=== PATIENT | female | born 1985 | race American Indian/Alaskan Native ===

== ENCOUNTER 2021-09-03 03:24 | Inpatient (IN) | payer OTHER ==
[2021-09-03] MEDS ORDERED: LACTATED RINGERS 1,000 ML ONE ×3 (04:17→19:15)
[2021-09-03 06:05] LABS: Hematocrit 33.8 % (30.3-42.9); Hemoglobin 10.7 gm/dl (10.1-14.3); Mean Corpuscular HGB Conc 32 % (30-34); Mean Corpuscular Volume 79 fl (79-97); Platelet Count 191 K/mm3 (140-440); Red Blood Count 4.27 M/mm3 (3.65-5.03); Red Cell Distribution Width 17.7 % (13.2-15.2)
[2021-09-03 06:29] LABS: Alanine Aminotransferase 17 units/L (7-56); Uric Acid 5.4 mg/dL (3.5-7.6)
[2021-09-03] MEDS ORDERED: miSOPROStol 200 MCG TAB PR PRN (08:15)
[2021-09-03] MEDS ORDERED: LACTATED RINGERS 1,000 ML IV SCH (08:15)
[2021-09-03] MEDS ORDERED: TERBUTALINE 1 MG/1 ML INJ SUB-Q PRN (08:15)
[2021-09-03] MEDS ORDERED: LOPERAMIDE 2 MG CAP PO PRN (08:15)
[2021-09-03] MEDS ORDERED: fentaNYL 100 MCG/2 ML INJ IV PRN (08:15)
[2021-09-03] MEDS ORDERED: CARBOPROST TROMETHAMINE 250 MCG/1 ML INJ IM PRN (08:15)
[2021-09-03] MEDS ORDERED: ePHEDrine SULFATE 50 MG/1 ML INJ IV PRN ×2 (08:15→09:24)
[2021-09-03] MEDS ORDERED: NalbUPHINE 10 MG/1 ML INJ IV PRN ×2 (08:15→09:24)
[2021-09-03] MEDS ORDERED: LIDOCAINE (2%) 20 MG/1 ML VIAL 20 ML MDV INFILTRATI ONE (08:15)
[2021-09-03] MEDS ORDERED: ACETAMINOPHEN 325 MG TAB PO PRN (08:15)
[2021-09-03] MEDS ORDERED: METHYLERGONOVINE MALEATE 0.2 MG/ML VIAL IM PRN (08:15)
[2021-09-03] MEDS ORDERED: AMPICILLIN/NS 2 GM/100 ML 2 GM/100 ML BAG IV ONE (08:15)
[2021-09-03] MEDS ORDERED: OXYTOCIN 10 UNIT/1 ML INJ IM PRN (08:15)
--- NOTE | 2021-09-03 08:23 | History and Physical Report ---
History of Present Illness Date of examination: 09/03/21 Date of admission: 09/03/21 03:53 Chief complaint: Contractions History of present illness: 36 year old was admitted to L&D with contractions. Patient denies vaginal bleeding or leaking of fluid. Patient states she received care at [facility]. No records are available. Patient states her EDC is 09/05/21. Patient denies any complications during . Patient denies any health problems other than obesity. She states this is her first . Past History Past Medical History: other (obesity) Past Surgical History: no surgical history [facility] History: denies: gonorrhea, hepatitis B, hepatitis C, herpes, HIV, syphilis, trichomonas Family/Genetic History: none Social history: no significant social history, full code. denies: smoking, alcohol abuse, prescription drug abuse, IV drug use - Obstetrical History Expected Date of Delivery: 09/05/21 Actual Gestation: 39 Week(s) 5 Day(s) : 1 Para: 0 Hx # Term Pregnancies: 0 Number of Pregnancies: 0 Spontaneous Abortions: 0 Induced : 0 Number of Living Children: 0 Medications and Allergies Allergies Allergy/AdvReac Type Severity Reaction Status Date / Time No Known Allergies Allergy Verified 09/03/21 04:19 Active Meds: Active Medications Acetaminophen (Acetaminophen 325 Mg Tab) 650 mg PO Q4H PRN PRN Reason: Pain, Mild (1-3) Carboprost Tromethamine (Carboprost Tromethamine 250 Mcg/1 Ml Inj) 250 mcg IM ONCE PRN PRN Reason: Uterine Bleeding Ephedrine Sulfate (Ephedrine Sulfate 50 Mg/1 Ml Inj) 10 mg IV Q2M PRN PRN Reason: Hypotension Fentanyl (Fentanyl 100 Mcg/2 Ml Inj) 100 mcg IV Q2H PRN PRN Reason: Pain,Severe (7-10) LABOR PAIN Lactated Ringer's (Lactated Ringers) 1,000 mls @ 125 mls/hr IV DIRECT VIKTORIA Oxytocin/Sodium Chloride (Pitocin/Ns 30 Unit/500ml) 30 units in 500 mls @ 40 mls/hr IV TITR VIKTORIA; Protocol Ampicillin Sodium (Ampicillin/Ns 2 Gm/100 Ml) 2 gm in 100 mls @ 100 mls/hr IV ONCE ONE; Protocol Stop: 09/03/21 09:14 Ampicillin Sodium (Ampicillin/Ns 1 Gm/50 Ml) 1 gm in 50 mls @ 100 mls/hr IV Q4H VIKTORIA; Protocol Lidocaine (Lidocaine (2%) 20 Mg/1 Ml Vial 20 Ml Mdv) 20 ml INFILTRATI ONCE ONE Stop: 09/03/21 08:16 Loperamide HCl (Loperamide 2 Mg Cap) 2 mg PO ONCE PRN PRN Reason: give with Hemabate Methylergonovine Maleate (Methylergonovine Maleate 0.2 Mg/Ml Vial) 0.2 mg IM ONCE PRN PRN Reason: Uterine Bleeding Mineral Oil (Mineral Oil 30 Ml Oral Liqd) 30 ml PO QHS PRN PRN Reason: Constipation Misoprostol (Misoprostol 200 Mcg Tab) 800 mcg PA ONCE PRN PRN Reason: Uterine Bleeding Nalbuphine HCl (Nalbuphine 10 Mg/1 Ml Inj) 10 mg IV Q2H PRN PRN Reason: Pain, Moderate (4-6) Oxytocin (Oxytocin 10 Unit/1 Ml Inj) 10 unit IM ONCE PRN PRN Reason: Uterine Bleeding Terbutaline Sulfate (Terbutaline 1 Mg/1 Ml Inj) 0.25 mg SUB-Q ONCE PRN PRN Reason: Hyperstimulation/Hypertonicity Review of Systems All systems: negative (contractions) - Vital Signs Vital signs: Vital Signs Pulse Pulse Ox 80 100 09/03/21 03:39 09/03/21 03:39 Temp Pulse Resp BP Pulse Ox 98.9 F 77 16 144/68 99 09/03/21 07:11 09/03/21 08:20 09/03/21 07:11 09/03/21 08:20 09/03/21 08:18 - Physical Exam Abdomen: Positive: normal appearance, soft. Negative: distention, tenderness, guarding, rigidity Genitourinary (Female): Positive: normal external genitalia, normal perenium. Negative: perineal/vulvar lesions Vagina: Positive: normal moisture Uterus: Positive: enlarged. Negative: tender Extremities: Negative: tenderness - Obstetrical FHR: category 2 FHR comments: Occasional brief variable FHR deceleration with rapid return to baseline. Normal baseline FHR and moderate variability. Uterine Contraction Monitor Mode: External Cervical Dilatation: 6 (BBOW) Cervical Effacement Percentage: 100 station: -2 Uterine Contraction Pattern: Regular Uterine Contraction Intensity: Moderate Results Result Diagrams: 09/03/21 Unknown 09/03/21 Unknown Abnormal lab results 09/03/21 09/03/21 Range/Units Unknown Unknown MCH 25 L (28-32) pg RDW 17.7 H (13.2-15.2) % Lactate Dehydrogenase 257 H (91-180) units/L All other labs normal. Assessment and Plan A: at 39 weeks, 5 days gestation. Active labor. GBS unknown. No records available. P: Continuous EFM. GBS prophylaxis. labs. records requested. Epidural if desired.
[2021-09-03] MEDS ORDERED: OXYTOCIN DRIP 30 UNITS/500 ML BAG IV SCH ×2 (09:00→12:00)
[2021-09-03] MEDS ORDERED: NALOXONE 2 MG/2 ML INJ IV PRN (09:24)
[2021-09-03] MEDS ORDERED: ONDANSETRON 4 MG/2 ML INJ IV PRN ×2 (09:24→17:56)
[2021-09-03] MEDS ORDERED: diphenhydrAMINE 50 MG/ML VIAL IV PRN (09:24)
[2021-09-03] MEDS ORDERED: LACTATED RINGERS 250 ML IV SOLN IV ONE (09:24)
--- NOTE | 2021-09-03 09:39 | Ultrasound Report ---
ULTRASOUND OBSTETRIC INDICATION / CLINICAL INFORMATION: EFW, EDC/EGA, location placenta. Clinical Gestational Age (GA) in weeks, days: 39 weeks 5 days TECHNIQUE: Transabdominal. COMPARISON: None available. FINDINGS: NUMBER: Single PRESENTATION: cephalic PLACENTA: anterior and free of the os. MEASUREMENTS: - Biparietal Diameter = 8.54 cm = 34 weeks, 3 days (head measurements are not felt to be accurate due to the patient being in active labor.) - Head Circumference = 29.79 cm = 30 weeks, 0 days ((head measurements are not felt to be accurate du e to the patient being in active labor) - Abdominal Circumference = 32.02 cm = 36 weeks, 0 days - Femur Length = 7.46 cm = 38 weeks, 1 days - Estimated Weight (in grams, if calculated): 2823 g - Heart Rate (beats per minute): 142 ADDITIONAL FINDINGS: None. AVERAGE ULTRASOUND AGE (AUA) in weeks, days = 35 weeks 5 days IMPRESSION: 1. Single intrauterine with AUA of 35 weeks, 5 days. This measurement is most likely undere stimated due to inaccurate head measurements. 2. No significant sonographic abnormality. Signer Name: Staci Sam MD Signed: 09/03/2021 9:35 AM Workstation Name: [id number]
--- NOTE | 2021-09-03 09:59 | Anesthesia Consultation ---
Anesthesia Consult and Med Hx Date of service: 09/03/21 - Airway Anesthetic Teeth Evaluation: Good ROM Head & Neck: Adequate Mental/Hyoid Distance: Adequate Mallampati Class: Class II Intubation Access Assessment: Probably Good - Pulmonary Exam CTA: Yes - Cardiac Exam Cardiac Exam: RRR - Pre-Operative Health Status ASA Pre-Surgery Classification: ASA2 Proposed Anesthetic Plan: Epidural - Pulmonary Hx Smoking: No Hx Asthma: No COPD: No Hx Pneumonia: No Hx Sleep Apnea: No - Cardiovascular System Hx Hypertension: No Hx Heart Attack/AMI: No Hx Angina: No - Gastrointestinal Hx Gastroesophageal Reflux Disease: No - Endocrine Hx End Stage Renal Disease: No Hx Liver Disease: No Hx Insulin Dependent Diabetes: No Hx Non-Insulin Dependent Diabetes: No - Other Systems Hx Alcohol Use: No Hx Obesity: Yes
[2021-09-03] MEDS ORDERED: fentaNYL-BUPIV 2 MCG/ML-0.125% 200 MCG/100 ML BAG EPIDURAL SCH (10:00)
--- NOTE | 2021-09-03 10:00 | Progress Note ---
Labor Epidural - Labor Epidural Start Time: 09:33 Stop Time: 09:51 Performed by:: IGOR SALDIVAR (Sanjuana GARCIA) Procedure: Patient is requesting epidural for labor and pain. H&P, labs were reviewed. Patient IDed, all questions and concerns were answered, and consent was signed. Timeout was performed at bedside. Patient in sitting position. Sterile prep and drape was performed. 3ml of 1% lidocaine skin wheal at L[3]- L [4]. 17-gauge Tuohy epidural needle was advanced to loss of resistance with air technique 8cm. Negative CSF negative blood. Epidural catheter advanced to [14] centimeters. [negative] Aspiration [negative] test dose. Sterile dressing applied. Patient tolerated procedure.
--- NOTE | 2021-09-03 10:47 | Event Note ---
Date: 09/03/21 records have now been received and the following noted: AMA (was seen by [facility] and discharged on 08/07); multiple uterine fibroids; varicella nonimmune; vitamin D deficiency; anemia. labs are as follows: O+, antibody screen negative, rubella immune, varicella nonimmune, pap smear ASC-US, HIV negative, hepatitis B surface antigen negative, RPR nonreactive, gonorrhea negative, chlamydia negative, trichomonas negative, AFP negative, inheritest negative, 1 hour sugar test 125, GBS negative.
[2021-09-03] MEDS ORDERED: AMPICILLIN/NS 1 GM/50 ML 1 GM/50 ML BAG IV SCH (12:30)
--- NOTE | 2021-09-03 13:48 | Event Note ---
Date: 09/03/21 Several late appearing heart rate decelerations noted. FHR baseline 145- 150 with moderate variability. Pitocin turned off. Patient positioned in left lateral postition. Oxygen applied per face mask at 10 LPM. SVE 9/100/-2/BBOW. Fetus in OP position.
--- NOTE | 2021-09-03 14:02 | Event Note ---
Date: 09/03/21 Amnioinfusion ordered; nurse notified. Consulted with Dr. Cherry re: FHR tracing and interventions taken.
[2021-09-03] MEDS ORDERED: SODIUM CHLORIDE 0.9% 1000 ML 1,000 ML VG SCH (14:15)
[2021-09-03 14:17] LABS: Hepatitis C Virus Antibody Non-Reactive (NonReactive)
--- NOTE | 2021-09-03 14:53 | Event Note ---
Date: 09/03/21 SVE 0.
[2021-09-03] MEDS ORDERED: MINERAL OIL 30 ML ORAL LIQD ONE (16:49)
[2021-09-03] MEDS ORDERED: HYDROcodone/ACETAMINOPHEN 5-325 MG TAB PO PRN (17:56)
[2021-09-03] MEDS ORDERED: LANOLIN/ZINC/DIMETHICONE (LANSINOH) 7 GM TP PRN (17:56)
[2021-09-03] MEDS ORDERED: diphenhydrAMINE 25 MG CAP PO PRN (17:56)
[2021-09-03] MEDS ORDERED: MAGNESIUM HYDROXIDE (MOM) ORAL LIQD UDC PO PRN (17:56)
--- NOTE | 2021-09-03 18:09 | Procedure Note ---
OB Delivery Note - Delivery Date of Delivery: 09/03/21 Surgeon: ENID DENNY Estimated blood loss: other (250 cc) - Vaginal Delivery presentation: vertex Delivery position: OA Intrapartum events: none Delivery induction: none Delivery augmentation: pitocin Delivery monitor: external FHT, external uterine Route of delivery: Delivery placenta: spontaneous Delivery cord: nuchal cord, 3 umbilical vessels Episiotomy: none Delivery laceration: 1st degree Delivery repair: vicryl Anesthesia: epidural Delivery comments: Spontaneous vaginal delivery at 17:10 of liveborn male infant weighing 6 lb. 1 oz. over intact perineum with apgars of 8/9. Epidural anesthesia. was atraumatic; loose nuchal cord times 1, manually reduced. Baby was placed skin to skin with mom immediately after delivery. Spontaneous cry and respirations. Baby was suctioned with bulb syringe and dried with warm blankets. 3 vessel cord double clamped and cut after cessation of pulsation. Baby was taken to radiant warmer for further suctioning. Cord blood obtained. Spontaneous delivery of intact placenta and membranes at 17:14. EBL 250 cc. Pitocin to IV fluids after delivery of placenta. Fundus firm and midline at 1 FB below umbilicus. First degree right labial laceration repaired with 2-0 vicryl. Vaginal sweep negative. Sponge count correct. Mother and baby stable in birthing room.
[2021-09-03] MEDS ORDERED: WITCH HAZEL/ GLYCERIN PAD TP PRN (19:00)
[2021-09-03] MEDS ORDERED: BENZOCAINE/MENTHOL 20/0.5% TOP SPRAY 56 GM TP PRN (19:00)
[2021-09-03] MEDS ORDERED: MAGNESIUM SULFATE 4 GM/100 ML BAG IV ONE (19:03)
--- NOTE | 2021-09-03 19:07 | Event Note ---
Date: 09/03/21 BPs increasing. Patient denies pain. Labetalol 100 mg po BID ordered. Magnesium sulfate ordered. Informed nurse and patient re: plan of care. Consulted with Dr. Cherry re: elevated blood pressures and above interventions.
[2021-09-03 19:31] LABS: Bacteria,Urine 1+ /HPF (Negative); Bilirubin,Urine NEG (Negative); Blood,Urine NEG (Negative); Color,Urine Yellow (Yellow); Mucus,Urine 3+ /HPF; Urobilinogen,Urine < 2.0 mg/dL (<2.0)
[2021-09-03] MEDS ORDERED: MAGNESIUM SULFATE 40GM/1000ML 40 GM/1,000 ML BAG IV SCH (20:00)
[2021-09-03] MEDS: IBUPROFEN 800 MG TAB PO SCH (20:45)
[2021-09-03] MEDS ORDERED: MINERAL OIL 30 ML ORAL LIQD PO PRN (22:00)
[2021-09-04] MEDS: IBUPROFEN 800 MG TAB PO SCH (03:30)
[2021-09-04 07:04] LABS: Hematocrit 28.4 % (30.3-42.9)
[2021-09-04] MEDS ORDERED: LACTATED RINGERS 1,000 ML ONE ×2 (08:27→19:03)
--- NOTE | 2021-09-04 08:51 | Progress Note ---
Assessment and Plan A: S/P with GHTN Asymptomatic anemia Mgs04 level 6.10 p: Continue routine pp orders Decrease Mgso4 to 1gm/hr D/c home within 24-[address] Anirudh Tran consulted Subjective - Subjective Date of service: 09/04/21 Principal diagnosis: s/p Patient reports: appetite normal, voiding normally, pain well controlled, ambulating normally, other (denies valdivia, visual problems, or epigastric pain) : doing well, in NICU, bottle feeding Objective - Vital Signs Latest vital signs: Vital Signs Temp Pulse Resp BP Pulse Ox Pulse Ox 09/04/21 08:46 88 99 09/04/21 08:41 84 98 09/04/21 08:40 86 121/68 92 09/04/21 08:36 90 98 09/04/21 08:31 97 H 99 09/04/21 08:26 96 H 99 09/04/21 08:21 91 H 99 09/04/21 08:17 97.9 F 18 09/04/21 08:16 75 98 09/04/21 08:11 86 98 09/04/21 08:10 82 128/70 09/04/21 08:09 98 09/04/21 08:06 83 98 09/04/21 08:01 81 99 09/04/21 07:56 83 97 09/04/21 07:51 94 H 99 09/04/21 07:46 82 97 09/04/21 07:41 84 97 09/04/21 07:40 82 97/53 09/04/21 07:36 82 97 09/04/21 07:31 81 98 09/04/21 07:26 85 99 09/04/21 07:21 81 96 09/04/21 07:16 87 97 09/04/21 07:11 85 97 09/04/21 07:10 82 111/64 09/04/21 07:06 83 95 09/04/21 07:01 77 97 09/04/21 06:56 79 96 09/04/21 06:51 84 96 09/04/21 06:46 85 96 09/04/21 06:41 80 98 09/04/21 06:39 74 120/73 09/04/21 06:36 82 98 09/04/21 06:31 78 98 09/04/21 06:26 77 96 09/04/21 06:21 79 98 09/04/21 06:16 81 96 09/04/21 06:11 86 98 09/04/21 06:10 76 120/69 09/04/21 06:06 89 98 09/04/21 06:01 79 98 09/04/21 05:56 76 96 09/04/21 05:51 88 99 09/04/21 05:46 78 99 09/04/21 05:41 82 98 09/04/21 05:36 92 H 99 09/04/21 05:34 97.7 F 09/04/21 05:31 87 98 09/04/21 05:26 89 99 09/04/21 05:21 90 97 09/04/21 05:16 87 96 09/04/21 05:11 86 96 09/04/21 05:10 87 92/54 09/04/21 05:06 87 96 09/04/21 05:01 90 96 09/04/21 04:56 90 96 09/04/21 04:51 86 96 09/04/21 04:46 80 95 09/04/21 04:41 95 H 95 09/04/21 04:40 89 111/64 09/04/21 04:36 91 H 96 09/04/21 04:31 93 H 96 09/04/21 04:26 96 H 94 09/04/21 04:21 95 H 95 09/04/21 04:16 95 H 95 09/04/21 04:11 96 H 95 09/04/21 04:10 83 120/64 09/04/21 04:09 88 89 09/04/21 04:06 94 H 95 09/04/21 04:01 89 96 09/04/21 03:56 93 H 96 09/04/21 03:51 80 96 09/04/21 03:46 95 H 95 09/04/21 03:41 88 96 09/04/21 03:40 81 122/81 09/04/21 03:36 83 96 09/04/21 03:31 97 H 98 09/04/21 03:26 86 99 09/04/21 03:21 85 98 09/04/21 03:16 81 97 09/04/21 03:11 84 97 09/04/21 03:10 75 104/64 0418/22 03:06 91 H 98 09/04/21 03:01 84 98 09/04/21 02:56 99 H 98 09/04/21 02:51 90 98 09/04/21 02:46 90 99 09/04/21 02:41 80 98 09/04/21 02:40 94 H 117/69 09/04/21 02:36 94 H 98 09/04/21 02:31 82 98 09/04/21 02:26 92 H 99 09/04/21 02:21 94 H 99 09/04/21 02:16 84 97 09/04/21 02:11 91 H 98 09/04/21 02:10 87 92/53 09/04/21 02:06 82 98 09/04/21 02:01 90 96 09/04/21 01:56 89 98 09/04/21 01:51 79 97 09/04/21 01:46 110 H 99 09/04/21 01:41 112 H 98 09/04/21 01:40 78 110/62 09/04/21 01:36 100 H 97 09/04/21 01:31 109 H 97 09/04/21 01:26 70 96 09/04/21 01:21 116 H 97 09/04/21 01:16 80 97 09/04/21 01:11 115 H 96 09/04/21 01:09 107 H 109/67 09/04/21 01:06 96 H 98 09/04/21 01:01 92 H 97 09/04/21 00:56 102 H 98 09/04/21 00:51 87 98 09/04/21 00:46 92 H 98 09/04/21 00:41 107 H 97 09/04/21 00:40 66 123/61 09/04/21 00:36 127 H 97 09/04/21 00:31 80 97 09/04/21 00:26 90 97 09/04/21 00:21 91 H 96 09/04/21 00:16 90 97 09/04/21 00:11 92 H 98 09/04/21 00:09 88 111/66 09/04/21 00:06 85 97 09/04/21 00:01 92 H 98 09/04/21 00:00 97.9 F 09/03/21 23:56 91 H 98 09/03/21 23:51 95 H 98 09/03/21 23:46 100 H 97 09/03/21 23:41 93 H 99 09/03/21 23:40 80 118/61 09/03/21 23:36 109 H 99 09/03/21 23:31 97 H 97 09/03/21 23:26 105 H 99 09/03/21 23:21 80 96 09/03/21 23:16 85 97 09/03/21 23:11 92 H 97 09/03/21 23:09 103 H 104/63 09/03/21 23:06 116 H 95 09/03/21 23:01 102 H 97 09/03/21 22:56 98 H 97 09/03/21 22:51 100 H 97 09/03/21 22:46 86 97 09/03/21 22:41 93 H 98 09/03/21 22:40 91 H 115/65 09/03/21 22:36 89 98 09/03/21 22:31 64 98 09/03/21 22:26 96 H 98 09/03/21 22:21 104 H 98 09/03/21 22:16 92 H 98 09/03/21 22:11 95 H 98 09/03/21 22:10 94 H 104/61 09/03/21 22:06 91 H 98 09/03/21 22:01 69 99 09/03/21 21:56 107 H 99 09/03/21 21:51 63 98 09/03/21 21:46 95 H 98 09/03/21 21:41 63 98 09/03/21 21:40 93 H 105/61 09/03/21 21:36 103 H 99 09/03/21 21:31 82 99 09/03/21 21:26 97 H 98 09/03/21 21:21 66 96 09/03/21 21:16 96 H 96 09/03/21 21:11 93 H 96 09/03/21 21:10 80 110/60 09/03/21 21:06 66 96 09/03/21 21:01 97 H 97 09/03/21 20:56 74 98 09/03/21 20:51 98 H 97 09/03/21 20:46 93 H 99 09/03/21 20:41 94 H 98 09/03/21 20:40 96 H 107/59 09/03/21 20:36 93 H 97 09/03/21 20:31 76 98 09/03/21 20:26 124 H 98 09/03/21 20:21 74 98 09/03/21 20:16 61 98 09/03/21 20:12 98 09/03/21 20:11 102 H 96 09/03/21 20:08 89 115/61 09/03/21 20:06 68 96 09/03/21 20:03 99 H 114/55 09/03/21 20:01 106 H 97 09/03/21 19:59 104 H 115/57 89 09/03/21 19:56 86 98 09/03/21 19:54 65 132/58 09/03/21 19:51 98 H 95 09/03/21 19:49 98 H 110/64 09/03/21 19:46 102 H 96 09/03/21 19:43 76 108/55 09/03/21 19:41 78 96 09/03/21 19:39 104 H 103/58 93 09/03/21 19:37 98.3 F 20 94 09/03/21 19:36 89 96 09/03/21 19:31 66 98 09/03/21 19:29 65 140/67 09/03/21 19:26 68 97 09/03/21 19:21 64 98 09/03/21 19:16 68 98 09/03/21 19:14 64 142/65 09/03/21 19:11 67 98 09/03/21 19:06 65 98 09/03/21 19:01 65 99 09/03/21 18:58 64 159/67 09/03/21 18:56 64 98 09/03/21 18:51 64 98 09/03/21 18:49 63 174/70 09/03/21 18:46 63 98 09/03/21 18:41 66 98 09/03/21 18:36 63 99 09/03/21 18:34 63 155/74 09/03/21 18:31 62 98 09/03/21 18:26 63 99 09/03/21 18:21 65 99 09/03/21 18:19 63 156/69 09/03/21 18:16 63 98 09/03/21 18:11 62 98 09/03/21 18:06 59 L 99 09/03/21 18:04 72 130/66 09/03/21 18:01 75 99 09/03/21 17:56 61 98 09/03/21 17:51 78 98 09/03/21 17:49 68 129/63 09/03/21 17:46 70 99 09/03/21 17:41 64 99 09/03/21 17:36 66 99 09/03/21 17:34 65 143/69 09/03/21 17:31 65 100 09/03/21 17:26 68 99 09/03/21 17:21 68 100 09/03/21 17:19 74 142/66 09/03/21 17:16 68 100 09/03/21 17:11 88 100 09/03/21 17:06 83 100 09/03/21 17:04 74 142/72 09/03/21 17:01 70 96 09/03/21 16:56 69 100 09/03/21 16:51 72 100 09/03/21 16:49 72 131/69 09/03/21 16:46 94 H 100 09/03/21 16:41 78 100 09/03/21 16:36 89 100 09/03/21 16:34 78 139/74 09/03/21 16:31 83 100 09/03/21 16:26 73 100 09/03/21 16:21 88 100 09/03/21 16:19 96 H 134/67 09/03/21 16:16 79 100 09/03/21 16:11 76 100 09/03/21 16:06 74 147/74 100 09/03/21 16:01 80 100 09/03/21 15:56 63 100 09/03/21 15:51 74 100 22 15:49 62 140/70 22 15:46 67 100 22 15:41 66 100 09/03/21 15:36 66 100 09/03/21 15:34 62 141/66 22 15:31 68 100 09/03/21 15:26 62 100 09/03/21 15:21 65 100 09/03/21 15:19 65 130/60 09/03/21 15:16 63 100 09/03/21 15:11 64 100 09/03/21 15:06 82 100 09/03/21 15:04 62 133/62 09/03/21 15:01 63 100 09/03/21 14:56 60 100 09/03/21 14:51 68 100 09/03/21 14:49 87 129/62 09/03/21 14:46 68 100 09/03/21 14:41 89 98 09/03/21 14:36 62 99 09/03/21 14:34 62 126/59 09/03/21 14:31 59 L 99 09/03/21 14:26 63 99 09/03/21 14:21 57 L 98 09/03/21 14:19 80 111/59 09/03/21 14:16 65 98 09/03/21 14:11 67 99 09/03/21 14:06 64 99 09/03/21 14:04 65 132/61 09/03/21 14:01 64 99 09/03/21 13:56 66 98 09/03/21 13:51 63 98 09/03/21 13:49 63 112/57 09/03/21 13:46 60 98 09/03/21 13:41 62 99 09/03/21 13:36 62 98 09/03/21 13:34 62 125/65 09/03/21 13:31 61 98 09/03/21 13:26 79 98 09/03/21 13:21 79 99 09/03/21 13:19 65 135/65 09/03/21 13:16 75 98 09/03/21 13:11 77 100 09/03/21 13:06 60 99 09/03/21 13:04 69 129/61 09/03/21 13:01 69 97 09/03/21 12:56 67 98 09/03/21 12:51 63 99 09/03/21 12:49 71 128/60 09/03/21 12:46 68 98 09/03/21 12:41 64 99 09/03/21 12:36 76 98 09/03/21 12:34 65 128/59 09/03/21 12:31 72 100 09/03/21 12:26 64 100 09/03/21 12:21 69 100 09/03/21 12:19 60 126/59 09/03/21 12:16 76 99 09/03/21 12:11 72 100 09/03/21 12:06 69 100 09/03/21 12:04 67 111/57 09/03/21 12:01 64 100 09/03/21 11:56 64 99 09/03/21 11:54 62 109/52 09/03/21 11:51 66 99 09/03/21 11:49 88 85/49 09/03/21 11:46 74 100 09/03/21 11:45 69 98/55 09/03/21 11:41 83 100 09/03/21 11:36 77 100 09/03/21 11:35 72 92 09/03/21 11:31 90 100 09/03/21 11:26 72 99 09/03/21 11:21 87 100 09/03/21 11:20 71 96/55 09/03/21 11:16 60 98 09/03/21 11:11 112 H 98 09/03/21 11:06 61 100 09/03/21 11:04 134 H 85/48 09/03/21 11:01 97 H 98 09/03/21 10:56 131 H 99 09/03/21 10:52 65 119/58 09/03/21 10:51 70 98 09/03/21 10:46 59 L 99 09/03/21 10:41 97 H 98 09/03/21 10:36 107 H 98 09/03/21 10:34 120 H 96/58 09/03/21 10:31 67 99 09/03/21 10:26 69 99 09/03/21 10:21 100 H 99 09/03/21 10:19 55 L 107/59 09/03/21 10:16 134 H 99 09/03/21 10:11 68 99 09/03/21 10:08 76 123/61 09/03/21 10:06 70 128/62 99 09/03/21 10:04 71 127/63 09/03/21 10:03 73 135/68 09/03/21 10:01 127 H 100 09/03/21 10:00 121 H 127/60 09/03/21 09:58 100 H 134/68 09/03/21 09:56 66 98 09/03/21 09:53 95 H 118/72 09/03/21 09:51 67 100 09/03/21 09:50 74 143/65 09/03/21 09:49 72 126/61 09/03/21 09:47 74 133/62 09/03/21 09:46 72 100 09/03/21 09:44 75 139/72 09/03/21 09:43 67 125/84 09/03/21 09:41 63 98 09/03/21 09:40 61 142/89 09/03/21 09:36 88 99 09/03/21 09:31 78 99 09/03/21 09:18 67 99 09/03/21 09:13 76 99 09/03/21 09:08 84 100 09/03/21 09:03 82 100 09/03/21 08:58 74 99 09/03/21 08:53 70 100 09/03/21 08:50 75 140/64 Intake and Output 09/03/21 09/04/21 09/04/21 22:59 06:59 14:59 Output Total 500 1050 Balance -500 -1050 Output: Urine 500 1050 Indwelling Catheter 500 1050 Other: Total, Output Amount 100 150 Estimated Blood Loss 250 - Exam Breasts: Present: normal Abdomen: Present: normal appearance, soft, normal bowel sounds Vulva: both: normal Uterus: Present: normal, firm, fundal height above umbilicus, other (fibroid) Extremities: Present: normal Incision: Present: normal, intact - Labs Labs: Abnormal lab results 09/04/21 09/04/21 09/04/21 Range/Units 00:52 06:43 06:43 Hgb 9.0 L (10.1-14.3) gm/dl Hct 28.4 L (30.3-42.9) % Magnesium 4.80 H 6.10 H (1.7-2.3) mg/dL
[2021-09-04] MEDS ORDERED: SIMETHICONE 80 MG CHEW TAB PO PRN (13:30)
[2021-09-04] MEDS: DOCUSATE SODIUM 100 MG CAP PO SCH (14:14)
[2021-09-04] MEDS: FERROUS SULFATE 325 MG TAB PO SCH ×2 (14:14→22:54)
--- NOTE | 2021-09-04 19:35 | Post Anesthesia Evaluation ---
- Post Anesthesia Evaluation Patient Participated: Yes Airway Patent: Yes Stable Respiratory Function: Yes Nausea/Vomiting: No Temp > 96.8F: Yes Pain Manageable: Yes Adequeate Hydration: Yes Anesthesia Complications: No Block Receding Appropriately: Yes
[2021-09-05] MEDS: IBUPROFEN 800 MG TAB PO SCH ×4 (00:33→18:14)
[2021-09-05] MEDS: DOCUSATE SODIUM 100 MG CAP PO SCH ×3 (00:35→22:59)
[2021-09-05] MEDS: FERROUS SULFATE 325 MG TAB PO SCH ×2 (11:07→22:18)
--- NOTE | 2021-09-05 15:47 | Progress Note ---
Assessment and Plan PPD#2 with preeclampsia, HTN controlled with labetalol 1. routine care and discharge home on labetalol with BP check one wk in office 2. Nurse asked to asst pt with shower prior to discharge 3. Pt to remain because until seen by psychiatry tomorrow per nurse report, then pt can be discharged All questions encouraged and answered Subjective Date of service: 09/05/21 Principal diagnosis: PPD#1 with preeclampsia Interval history: pt has no complaints. pt wants to take a shower but scared to do this alone. pt states she wants to breast feed but no milk seen. Denies pelvis pain and vag bleed less than a period. Objective - Constitutional Vitals: Vital Signs - 12hr 09/05/21 09/05/21 09/05/21 04:55 07:56 08:35 Temperature 97.6 F 97.6 F Pulse Rate 62 73 Respiratory 20 16 Rate Blood Pressure 125/69 122/73 O2 Sat by Pulse 100 100 Oximetry O2 Sat by Pulse 98 Oximetry [ Bilateral] 09/05/21 09/05/21 11:07 12:33 Temperature 97.3 F L Pulse Rate 74 85 Respiratory 20 Rate Blood Pressure 114/65 127/67 O2 Sat by Pulse 100 Oximetry O2 Sat by Pulse Oximetry [ Bilateral] General appearance: Present: no acute distress - Neck Neck: normal ROM - Respiratory Respiratory effort: normal - Breasts Breasts: deferred - Cardiovascular Rhythm: regular Extremities: No edema - Gastrointestinal General gastrointestinal: Present: soft, non-tender - Genitourinary Female genitourinary: other (Fundus firm 1cm below fundus, non-tender; Lochia small) - Integumentary Integumentary: warm, dry - Neurologic Neurologic: moves all extremities - Psychiatric Psychiatric: cooperative - Labs CBC & Chem 7: 09/04/21 06:43 09/03/21 Unknown Labs: Abnormal lab results 09/04/21 09/05/21 09/05/21 Range/Units 18:45 01:22 07:00 Magnesium 4.40 H 3.10 H 2.60 H (1.7-2.3) mg/dL Medications & Allergies - Medications Allergies/Adverse Reactions: Allergies No Known Allergies Allergy (Verified 09/03/21 04:19) Active Medications: Generic Name Dose Route Start Last Admin Trade Name Freq PRN Reason Stop Dose Admin Hydrocodone Bitart/Acetaminophen 2 each 09/03/21 17:56 Hydrocodone/Acetaminophen 5-325 Mg Tab PO Q6H PRN Pain, Moderate (4-6) Benzocaine/Menthol 1 spray 09/03/21 19:00 Benzocaine/Menthol 20/0.5% [place] 56 Gm TP PRN PRN Episiotomy Pain Carboprost Tromethamine 250 mcg 09/03/21 08:15 Carboprost Tromethamine 250 Mcg/1 Ml Inj IM ONCE PRN Uterine Bleeding Docusate Sodium 100 mg 09/03/21 22:00 09/05/21 11:12 Docusate Sodium 100 Mg Cap PO Not Given BID VIKTORIA Ferrous Sulfate 325 mg 09/03/21 22:00 09/05/21 11:07 Ferrous Sulfate 325 Mg Tab PO 325 mg BID VIKTORIA Administration Magnesium Sulfate 40 gm in 1,000 mls @ 50 mls/hr 09/03/21 20:00 09/04/21 08:28 Magnesium Sulfate 40gm/1000ml IV 1 gm/hr DIRECT VIKTORIA 25 mls/hr Infusion 2 GM/HR Ibuprofen 800 mg 09/03/21 18:00 09/05/21 11:08 Ibuprofen 800 Mg Tab PO 800 mg Q6H VIKTORIA Administration Labetalol HCl 100 mg 09/03/21 19:03 09/05/21 11:07 Labetalol 100 Mg Tab PO 100 mg BID VIKTORIA Administration Loperamide HCl 2 mg 09/03/21 08:15 Loperamide 2 Mg Cap PO ONCE PRN give with Hemabate Misoprostol 800 mcg 09/03/21 08:15 Misoprostol 200 Mcg Tab LA ONCE PRN Uterine Bleeding Multi-Ingredient Ointment 1 applic 09/03/21 17:56 Lanolin/Zinc/Dimethicone (Lansinoh) 7 Gm TP PRN PRN Sore Nipples Simethicone 80 mg 09/04/21 13:30 09/04/21 14:14 Simethicone 80 Mg Chew Tab PO 80 mg Q6H PRN Administration Gas pain Sodium Chloride 10 ml 09/03/21 19:00 Sodium Chloride 0.9% 10 Ml Flush Syringe IV PRN VIKTORIA Witch Karolina/Glycerin 1 each 09/03/21 19:00 Witch Karolina/ Glycerin Pad TP PRN PRN Hemorrhoid/cleansing/soothing
[2021-09-06] MEDS: IBUPROFEN 800 MG TAB PO SCH ×3 (00:40→12:13)
[2021-09-06] MEDS: DOCUSATE SODIUM 100 MG CAP PO SCH (10:43)
[2021-09-06] MEDS: FERROUS SULFATE 325 MG TAB PO SCH (10:44)
--- NOTE | 2021-09-06 10:55 | Progress Note ---
Assessment and Plan A: PP Day #3 Asymptomatic Anemia Preeclampsia P: Follow Routine orders Continue FeSO4 325mg PO BID Continue Labetalol 100mg PO BID D/C Home today RTO in One Week for BP check Subjective - Subjective Date of service: 09/06/21 Principal diagnosis: PPD#1 with preeclampsia Patient reports: appetite normal, voiding normally, pain well controlled, flatus, bowel movement, ambulating normally, other (Denies HAs, visual changes, epigastic pain, N&V. States she feels well and ready for discharge home) [place]: doing well, bottle feeding (and ) Objective - Vital Signs Latest vital signs: Vital Signs Temp Pulse Resp BP Pulse Ox Pulse Ox 09/06/21 10:48 60 142/49 09/06/21 09:57 100 09/06/21 08:30 98.3 F 58 L 18 125/63 100 09/06/21 07:05 18 09/06/21 06:11 18 09/06/21 04:56 98.5 F 64 20 137/63 98 09/06/21 01:40 18 09/06/21 00:40 18 09/06/21 00:08 98.2 F 60 20 139/52 100 09/05/21 22:18 73 18 133/67 98 09/05/21 20:19 98.2 F 74 20 148/79 99 09/05/21 20:00 100 09/05/21 15:34 97.3 F L 70 20 142/68 100 09/05/21 12:33 97.3 F L 85 20 127/67 100 09/05/21 11:07 74 114/65 Intake and Output 09/05/21 09/06/21 09/06/21 22:59 06:59 14:59 Intake Total 200 480 240 Balance 200 480 240 Intake: Oral 200 240 240 Intake, Free Water 240 Other: Total, Intake Amount 200 240 240 # Voids Void 1 1 1 - Exam Breasts: Present: normal Cardiovascular: Present: Regular rate Lungs: Present: Clear to auscultation, Normal air movement Abdomen: Present: normal appearance, soft, normal bowel sounds Uterus: Present: normal, firm, fundal height at umbilicus Extremities: Present: normal
--- NOTE | 2021-09-06 10:56 | Discharge Summary ---
Providers - Providers Date of Admission: 09/03/21 03:53 Date of discharge: 09/06/21 Attending physician: IDANIA AC 09/05/21 12:05 psychiatry consult [Consult to Mental Health] [CONS] Routine Reason For Exam: Mother scored a 10 on depression scale Primary care physician: IDANIA AC Hospitalization Reason for admission: active labor Delivery: Episiotomy: none Laceration: 1st degree Other procedures: none complications: none Discharge diagnosis: IUP at term delivered [place] baby: male Condition at discharge: Good Disposition: 01 HOME / SELF CARE / HOMELESS Plan - Provider Discharge Summary Activity: routine, no sex for 6 weeks, no heavy lifting 4 weeks, no strenuous exercise Diet: routine Instructions: routine Additional instructions: [] Smoking cessation referral if applicable(refer to patient education folder for contact #) [] Refer to [facility]'s [facility] Booklet Call your doctor immediately for: * Fever > 100.5 * Heavy vaginal bleeding ( >1 pad per hour) * Severe persistent headache * Shortness of breath * Reddened, hot, painful area to leg or breast * Drainage or odor from incision. * Keep incision clean and dry at all times and follow doctor's instructions regarding bathing/showering - Follow up plan Follow up: IDANIA AC MD [Primary Care Provider] - 7 Days
--- NOTE | 2021-09-06 11:30 | Consultation ---
History of Present Illness - Reason for Consult Consult date: 09/06/21 Reason for consult: Post depression - Chief Complaint Chief complaint: Contractions - History of Present Psychiatric Illness The patient is 36 year old female with no psychiatric history who was consulted for post depression. The patient was seen this morning with her in the room. The patient is calm, alert and oriented x3. She states she is doing well. The patient is naive to psychotropic medications. She denies being depressed or feeling excessively anxious. The patient denies suicidal/homicidal ideation and denies hallucinations. PSYCHIATRIC HISTORY: Diagnoses: Denies Suicide attempts or Self-harm behavior:Denies Prior psychiatric hospitalizations: Denies Substance Abuse history: Denies Previous psychiatric medications tried: Denies Outpatient treatment: Denies PAST MEDICAL HISTORY: None reported or document Family Psychiatric History: None reported or documented SOCIAL HISTORY Marital Status: Living Arrangements: Lives with Employment Status: unemployed Access to guns/weapons: Denies Education: 12th History of Abuse: Denies Legal History: unknown REVIEW OF SYSTEMS Constitutional: Negative for weight loss ENT: Negative for stridor Respiratory: Negative for cough or hemoptysis All other systems reviewed and are negative MENTAL STATUS EXAMINATION General Appearance and Behavior: Age appropriate, good hygiene, wearing appropriate clothes. calm, cooperative Cooperation: Cooperative Psychomotor Behavior: Psychomotor normal Mood: "good" Affect and affective range: Congruent with stated mood Thought Process: Goal directed Thought Content: Reality oriented Speech: normal tone and pace Suicidal Ideation: Denies Homicidal Ideation:Denies Hallucinations: Denies Delusions: None elicited Impulse Control: limited Insight and Judgment: Limited Memory: Limited Attention: attentive Orientation: a/ox3 Assessment (1)Mental health evaluation Current Visit: Yes Status: Acute Treatment Plan Risks, benefits and alternatives of medications discussed with the patient, questions answered and consent obtained from patient. PSYCHOTHERAPY: Supportive psychotherapy provided MEDICAL: Per primary team DELIRIUM PRECAUTIONS: Please re-orient patient frequently, keep lights on during the day, and minimize benzodiazepines and opiates as these medications could worsen patient's confusion. SENIOR ACCOUNTING SPECIALIST: Defer to primary DISPOSITION: Do not recommend acute inpatient psychiatric hospitalization at this time. Train Driver will provide patient with psychiatric outpatient resources. FOLLOW-UP: Will sign off. Thanks [facility] staffed with Dr. Chakraborty Medications and Allergies Allergies Allergy/AdvReac Type Severity Reaction Status Date / Time No Known Allergies Allergy Verified 09/03/21 04:19 Home Medications Medication Instructions Recorded Confirmed Last Taken Type No Known Home Medications [No 09/06/21 09/06/21 Unknown History Reported Home Medications] Active Meds: Active Medications Hydrocodone Bitart/Acetaminophen (Hydrocodone/Acetaminophen 5-325 Mg Tab) 2 each PO Q6H PRN PRN Reason: Pain, Moderate (4-6) Benzocaine/Menthol (Benzocaine/Menthol 20/0.5% [place] 56 Gm) 1 spray TP PRN PRN PRN Reason: Episiotomy Pain Carboprost Tromethamine (Carboprost Tromethamine 250 Mcg/1 Ml Inj) 250 mcg IM ONCE PRN PRN Reason: Uterine Bleeding Docusate Sodium (Docusate Sodium 100 Mg Cap) 100 mg PO BID [facility] Last Admin: 09/06/21 10:43 Dose: 100 mg Ferrous Sulfate (Ferrous Sulfate 325 Mg Tab) 325 mg PO BID [facility] Last Admin: 09/06/21 10:44 Dose: 325 mg Magnesium Sulfate (Magnesium Sulfate 40gm/1000ml) 40 gm in 1,000 mls @ 50 mls/hr IV DIRECT [facility] Last Infusion: 09/04/21 08:28 Dose: 1 gm/hr, 25 mls/hr Ibuprofen (Ibuprofen 800 Mg Tab) 800 mg PO Q6H [facility] Last Admin: 09/06/21 06:11 Dose: 800 mg Labetalol HCl (Labetalol 100 Mg Tab) 100 mg PO BID [facility] Last Admin: 09/06/21 10:48 Dose: Not Given Loperamide HCl (Loperamide 2 Mg Cap) 2 mg PO ONCE PRN PRN Reason: give with Hemabate Misoprostol (Misoprostol 200 Mcg Tab) 800 mcg [place] ONCE PRN PRN Reason: Uterine Bleeding Multi-Ingredient Ointment (Lanolin/Zinc/Dimethicone (Lansinoh) 7 Gm) 1 applic TP PRN PRN PRN Reason: Sore Nipples Simethicone (Simethicone 80 Mg Chew Tab) 80 mg PO Q6H PRN PRN Reason: Gas pain Last Admin: 09/04/21 14:14 Dose: 80 mg Sodium Chloride (Sodium Chloride 0.9% 10 Ml Flush Syringe) 10 ml IV PRN [facility] Witch [place]/Glycerin (Witch [place]/ Glycerin Pad) 1 each TP PRN PRN PRN Reason: Hemorrhoid/cleansing/soothing Mental Status Exam - Vital signs Last Vital Signs Temp 98.3 F 09/06/21 08:30 Pulse 60 09/06/21 10:48 Resp 18 09/06/21 08:30 BP 142/49 09/06/21 10:48 Pulse Ox 100 09/06/21 09:57 Results Result Diagrams: 09/04/21 06:43 09/03/21 Unknown All other labs normal.
[2021-09-06 19:24] VITALS: BP 127/62
== END 2021-09-06 20:40 | disposition home or self-care (01) | DRG 807 ==
LOC: TRG 03:24 → APU 03:25 → LD 03:53 → OBSVTOIN 03:53 → TRG 03:53 → OB 09-04 20:12
PROVIDERS: ADMIT Obstetrics & Gynecology; ATTEND Obstetrics & Gynecology
PROC: 10E0XZZ Delivery of Products of Conception, External Approach (ICD-10-PCS; principal; 2021-09-03)
PROC: 10H07YZ Insertion of Other Device into Products of Conception, Via Natural or Artificial Opening (ICD-10-PCS; 2021-09-03)
PROC: 3E0R3BZ Introduction of Anesthetic Agent into Spinal Canal, Percutaneous Approach (ICD-10-PCS; 2021-09-03)
PROC: 00HU33Z Insertion of Infusion Device into Spinal Canal, Percutaneous Approach (ICD-10-PCS; 2021-09-03)
PROC: 0HQ9XZZ Repair Perineum Skin, External Approach (ICD-10-PCS; 2021-09-03)
DX: O13.4 Gestational [pregnancy-induced] hypertension without significant proteinuria, complicating childbirth (principal); Z37.0 Single live birth; O69.81X0 Labor and delivery complicated by cord around neck, without compression, not applicable or unspecified; Z3A.39 39 weeks gestation of pregnancy; Z20.822 Contact with and (suspected) exposure to COVID-19; O34.13 Maternal care for benign tumor of corpus uteri, third trimester; D25.9 Leiomyoma of uterus, unspecified; O76 Abnormality in fetal heart rate and rhythm complicating labor and delivery; O70.0 First degree perineal laceration during delivery; O90.81 Anemia of the puerperium; O14.94 Unspecified pre-eclampsia, complicating childbirth
CPT/HCPCS: 36415; 76815; 76816; 81001; 82565; 83615; 83735; 84450; 84460; 84550; 85014; 85018; 85027; 86592; 86706; 86762; 86803; 86850; 86900; 86901; 87806; 99211; G0378; J3490; G0463; J0290; J2590; J3475; J7030; J7120; U0003